=== PATIENT | female | born 1945 | race Caucasian/White ===

== ENCOUNTER 2019-07-08 09:58 | Inpatient (IN) ==
[2019-07-08] MEDS ORDERED: HYDROmorphone 2 MG/1 ML VIAL IV STA (10:27)
[2019-07-08] MEDS ORDERED: ONDANSETRON 4 MG/2 ML VIAL IV STA ×2 (10:27→14:34)
[2019-07-08] MEDS ORDERED: DEXTROSE 50% 25 GM/50 ML VIAL IV STA (10:51)
[2019-07-08] MEDS ORDERED: DEXTROSE 50% 25 GM/50 ML SYRINGE IV ONE (10:51)
[2019-07-08 11:05] LABS: Basophils # 0.1 10*3/uL (0.0-0.2); Basophils % 0.7 % (0.0-0.8); Eosinophils % 0.1 % (0.00-10.9); Hematocrit 40.7 VOL% (35.7-47.0); Hemoglobin 13.5 GM/DL (12.0-16.0); Immature Granulocytes % 0.7 %; Immature Granulocytes Absolute 0.13 #; Lymphocytes # 0.9 10*3/uL (1.4-4.0); Lymphocytes % 5.2 % (21.3-54.2); Mean Corpuscular HGB Conc 33.2 GM/DL (32-36); Mean Corpuscular Volume 90.6 FL (87-102); Mean Platelet Volume 10.6 FL (9.6-12.0); Monocytes % 3.9 % (1.7-12.7); Neutrophils % 89.4 % (38.7-73.9); Platelet Count 326 T/CUMM (130-400); Red Blood Count 4.49 MC/CUMM (3.8-5.5); Red Cell Distribution Width 15.2 % (9.3-17.3); White Blood Count 17.6 T/CUMM (4-12)
[2019-07-08 11:27] LABS: Alanine Aminotransferase 22 U/L (13-56); Albumin 1.8 G/DL (3.4-5.0); Alkaline Phosphatase 219 U/L (45-117); Aspartate Amino Transferase 51 U/L (0-37); Blood Urea Nitrogen 49 MG/DL (7-18); Calcium 8.6 MG/DL (8.5-10.1); Estimated Glom Filtration Rate 17 ML/MIN; Osmolality,Calculated 266.1 MOS/KG (273-304); Total Protein 7.5 G/DL (6.4-8.3)
[2019-07-08 11:30] LABS: Band Neutrophils 8 % (0-10); Glucose 49 MG/DL (74-106); Lymphocytes 2 % (20-55); Platelet Estimate Adequate; Segmented Neutrophils 87 % (50-85); Total Cells Counted 100
[2019-07-08 11:31] LABS: Burr Cells Few
[2019-07-08 11:56] LABS: INR 1.7; PT Patient Result 17.9 SECS (9.6-12.2); Partial Thromboplastin Time 38.7 SECS (20.8-36.0)
[2019-07-08] MEDS ORDERED: SODIUM CHLORIDE 0.9% 500 ML IV STA (12:46)
[2019-07-08] MEDS ORDERED: MEROPENEM 500 MG in SODIUM CHLORIDE 0.9% 100 ML IV ONE (12:46)
[2019-07-08] MEDS ORDERED: GLUCAGON 1 MG VIAL IM PRN (13:46)
[2019-07-08] MEDS ORDERED: DEXTROSE 50% 25 GM/50 ML VIAL IV PRN (13:46)
[2019-07-08] MEDS ORDERED: ALBUTEROL/IPRATROPIUM 3 ML NEB RESP TX PRN (13:46)
[2019-07-08] MEDS ORDERED: DEXTROSE 50% 25 GM/50 ML VIAL IV ONE (15:28)
[2019-07-08] MEDS ORDERED: MAGNESIUM SULF RIDER 4 GM in PREMIX 1 EACH IV PRN (15:36)
[2019-07-08] MEDS ORDERED: POTASSIUM CHLORIDE 20 MEQ TABLET PO PRN (15:36)
[2019-07-08] MEDS ORDERED: ALBUMIN 5% 12.5 GM/250 ML VIAL IV ONE (16:00)
[2019-07-08] MEDS ORDERED: propofoL 200 MG/20 ML VIAL IV ONE (17:02)
[2019-07-08] MEDS ORDERED: SEVOFLURANE 1 UNIT/15 MINUTE INH ONE (17:02)
[2019-07-08] MEDS ORDERED: EPINEPHrine 1 MG/ML VIAL ONE (17:02)
[2019-07-08] MEDS ORDERED: ePHEDrine 50 MG/ML AMP ONE (17:02)
[2019-07-08] MEDS ORDERED: SUCCINYLCHOLINE 200 MG/10 ML VIAL ONE (17:03)
[2019-07-08] MEDS ORDERED: PHENYLEPHRINE 1 MG/10 ML SYRINGE IV ONE (17:03)
[2019-07-08] MEDS ORDERED: ETOMIDATE 40 MG/20 ML VIAL IV ONE (17:03)
[2019-07-08] MEDS: PIPERACILLIN/TAZOBACTAM 3,375 MG in SODIUM CHLORIDE 0.9% 100 ML IV SCH (18:15)
[2019-07-08] MEDS ORDERED: PHENYLEPHRINE DRIP 40 MG/250 ML PREMIX IV PRN (18:16)
[2019-07-08 18:36] LABS: RBC,Peritoneal Fluid 1872 T/CUMM
[2019-07-08] MEDS ORDERED: SODIUM CHLORIDE 0.9% 1,000 ML IV SCH (19:00)
[2019-07-08 20:50] LABS: Neutrophils,Peritoneal Fluid 85 %
[2019-07-08] MEDS: MAGNESIUM SULF RIDER 2 GM in PREMIX 1 EACH IV PRN (22:08)
[2019-07-08] MEDS: MORPHINE 4 MG/1 ML VIAL IV PRN (23:37)
[2019-07-08] MEDS ORDERED: ONDANSETRON 4 MG/2 ML VIAL ONE (23:45)
[2019-07-09] MEDS: ONDANSETRON 4 MG/2 ML VIAL IV PRN ×2 (00:01→05:05)
[2019-07-09] MEDS: MAGNESIUM SULF RIDER 2 GM in PREMIX 1 EACH IV PRN (00:06)
[2019-07-09 00:52] LABS: Basophils % 0.1 % (0.0-0.8); Eosinophils % 0.1 % (0.00-10.9); Hemoglobin 11.9 GM/DL (12.0-16.0); Immature Granulocytes % 0.8 %; Immature Granulocytes Absolute 0.15 #; Lymphocytes # 1.1 10*3/uL (1.4-4.0); Mean Corpuscular HGB Conc 33.1 GM/DL (32-36); Mean Corpuscular Volume 92.1 FL (87-102); Mean Platelet Volume 10.7 FL (9.6-12.0); Monocytes % 4.4 % (1.7-12.7); Neutrophils % 88.6 % (38.7-73.9); Platelet Count 311 T/CUMM (130-400); Red Blood Count 3.91 MC/CUMM (3.8-5.5); Red Cell Distribution Width 15.5 % (9.3-17.3); White Blood Count 17.7 T/CUMM (4-12)
[2019-07-09 01:09] LABS: Albumin 1.7 G/DL (3.4-5.0); Bilirubin,Total 4.1 MG/DL (0.2-1.0); Calcium 8.1 MG/DL (8.5-10.1); Osmolality,Calculated 272.7 MOS/KG (273-304); Thyroid Stimulating Hormone 2.94 uIU/ml (0.358-3.74)
[2019-07-09] MEDS: DEXTROSE 10% 250 ML BAG IV PRN ×2 (02:06→06:00)
[2019-07-09] MEDS: PIPERACILLIN/TAZOBACTAM 3,375 MG in SODIUM CHLORIDE 0.9% 100 ML IV SCH ×2 (02:26→10:44)
[2019-07-09] MEDS ORDERED: ALBUMIN 25% 25 GM in PREMIX 1 EACH IV ONE (04:00)
[2019-07-09] MEDS: MORPHINE 4 MG/1 ML VIAL IV PRN (05:04)
[2019-07-09 06:10] LABS: Anisocytosis 1+; Band Neutrophils 24 % (0-10); Lymphocytes 5 % (20-55); Platelet Estimate Adequate; Segmented Neutrophils 69 % (50-85); Total Cells Counted 100
[2019-07-09 07:15] LABS: Apearance,Urine CLOUDY (Clear); Bacteria,Urine Few /HPF (Few); Bilirubin,Urine Negative (Negative); Blood, Urine Small mg/dL (Negative); Glucose,Urine (UA) Negative (Negative); Hyaline Casts,Urine 10 /LPF (0-3); Ketones,Urine Negative (Negative); Nitrite,Urine Negative (Negative); Protein,Urine Negative; RBC,Urine 2 /HPF (0-4); Squamous Epithelial Cell,Urine Many /HPF (0-10); Urine Color Amber (Yellow); Urine Specific Gravity 1.018 (1.001-1.035); WBC,Urine 6 /HPF (0-6)
[2019-07-09] MEDS ORDERED: HEPARIN/NACL 0.9% 2 UNITS/ML 0 ML IV ONE (08:56)
[2019-07-09] MEDS ORDERED: PANTOPRAZOLE 40 MG TABLET PO SCH (09:00)
[2019-07-09 09:17] LABS: ABG Base Excess -25.3 MMOL/L (-2.5-2.5); ABG HCO3 6.6 MMOL/L (20-26); ABG Oxygen Saturation 67.2 % (95-100); ABG PCO2 31.3 MM HG (35-48); ABG PO2 53.8 MM HG (80-95); ABG TCO2 6.6 MMOL/L (23-27); Allen Test Positive
[2019-07-09 09:18] LABS: ABG PH 6.924 (7.35-7.45)
[2019-07-09] MEDS ORDERED: SODIUM BICARBONATE 50 MEQ/50 ML VIAL IV ONE ×2 (09:20→09:25)
[2019-07-09] MEDS ORDERED: LORazepam 2 MG/1 ML VIAL IV PRN ×2 (09:32→11:39)
[2019-07-09] MEDS ORDERED: MORPHINE 4 MG/1 ML VIAL IV PRN ×2 (09:34→11:39)
[2019-07-09] MEDS ORDERED: SODIUM BICARB INJ 100 MEQ in DEXTROSE 5% NACL 0.9% 1,000 ML IV SCH (10:00)
[2019-07-09 10:17] VITALS: BP 66/36
== END 2019-07-09 12:15 | disposition expired | DRG 408 ==
LOC: EDBD → EDUNIT# → N.ED 09:58 → N.EDINP 13:46 → SUATTDRO 13:46 → N.EDINP 14:40 → N.5E 15:10 → N.ICU 16:45 → N.TELEN 07-09 12:14
PROVIDERS: ADMIT Internal Medicine; ATTEND Internal Medicine